=== PATIENT | male | born 1995 | race Caucasian/White ===

== ENCOUNTER 2016-12-02 22:47 | Emergency (ER) | payer OTHER | END 2016-12-02 23:05 | disposition home or self-care (01) | LOC: ER 22:47 | PROC: 0H9JXZZ Drainage of Left Upper Leg Skin, External Approach (ICD-10-PCS; principal; 2016-12-02) | DX: L03.116 Cellulitis of left lower limb (principal); I10 Essential (primary) hypertension | CPT/HCPCS: 99282 ==